=== PATIENT | female | born 1945 | race Caucasian/White ===

== ENCOUNTER 2024-10-26 11:37 | Outpatient (CLI) | payer MEDICARE, OTHER, SELFPAY ==
--- NOTE | 2024-10-26 11:44 | XR_ITS ---
WS: [email or web address] Lumbar spine, 3 views, 10/26/2024 Clinical Data: M51.36 - Other intervertebral disc degeneration, lumbar r... Comparison: Lumbar spine, 03/11/1999 Findings: No compression fractures or subluxation is seen. There is degenerative disc narrowing at L4-L5 and L5-S1. The transverse processes and SI joints are normal. There is osteoarthritis of all the lumbar vertebral bodies with bridging between the L1-L2 and L2-L3 vertebral bodies anteriorly. There are cholecystectomy clips in the right upper quadrant. XR/XR lumbar spine 2-3V* [id number] Impression: 1. Degenerative disc narrowing at L4-L5 and L5-S1. 2. Osteoarthritis of all the lumbar vertebral bodies.
--- NOTE | 2024-10-26 11:44 | XR_ITS ---
WS: [email or web address] Cervical spine, 3 views, 10/26/2024 Clinical Data: M51.36 - Other intervertebral disc degeneration, lumbar r... Comparison: Cervical spine, 03/11/2008 Findings: No compression fractures are seen. The disc heights are normal. There is no prevertebral soft tissue swelling. There our small anterior osteophytes from C4-C6. There is facet joint arthritis at C5-C6. The odontoid is unremarkable. The soft tissues of the neck and the lung apices are normal. XR/XR cervical spine 3V* [id number] Impression: 1. Osteophytes C4-C6. 2. Facet joint arthritis C5-C6
--- NOTE | 2024-10-26 11:44 | XR_ITS ---
WS: [email or web address] Thoracic spine, 3 views, 10/26/2024 Clinical Data: M51.36 - Other intervertebral disc degeneration, lumbar r... Comparison: None. Findings: No compression fractures are seen. The disc heights are normal. There is osteoarthritis of the mid and lower thoracic vertebral bodies. The paravertebral region is normal. There is a gentle dextroscoliosis. There are cholecystectomy clips in the right upper quadrant. XR/XR thoracic spine 3V* [id number] Impression: 1. Osteoarthritis of the mid and lower thoracic vertebral bodies. 2. Minimal dextroscoliosis.
== END 2024-10-26 11:38 | disposition home or self-care (01) ==
PROVIDERS: PCP Nurse Practitioner; Visit Provider Nurse Practitioner
DX: M47.894 Other spondylosis, thoracic region (principal); M41.86 Other forms of scoliosis, lumbar region; M51.361 Other intervertebral disc degeneration, lumbar region with lower extremity pain only; M51.371 Other intervertebral disc degeneration, lumbosacral region with lower extremity pain only; M47.816 Spondylosis without myelopathy or radiculopathy, lumbar region; M25.78 Osteophyte, vertebrae; M47.812 Spondylosis without myelopathy or radiculopathy, cervical region
CPT/HCPCS: 72040; 72072; 72100

== ENCOUNTER → 2024-12-03 14:46 | Outpatient (BNVA) | payer MEDICARE, OTHER, SELFPAY | PROVIDERS: PCP Nurse Practitioner; Visit Provider Nurse Practitioner | DX: E55.9 Vitamin D deficiency, unspecified (principal); M51.369 Other intervertebral disc degeneration, lumbar region without mention of lumbar back pain or lower extremity pain; Z13.6 Encounter for screening for cardiovascular disorders; K59.00 Constipation, unspecified | CPT/HCPCS: 80053; 80061; 82306; 82607; 84443; 85025 ==

== ENCOUNTER 2024-12-04 11:43 | Outpatient (CLI) | payer MEDICARE, OTHER, SELFPAY ==
--- NOTE | 2024-12-04 12:04 | XR_ITS ---
WS: [email or web address] XR thoracic spine 3V* [id number] REASON FOR EXAM: M51.36 - Other intervertebral disc degeneration, lumbar r... FINDINGS: The thoracic spine is unchanged compared to 10/26/2024. Minimal dextroscoliosis. No significant kyphosis. No significant vertebral body compression deformity or focal lesion. The disc spaces are intact and relatively well preserved. There is an anterior flowing osteophyte formation from T6-T11. XR/XR thoracic spine 3V* [id number] IMPRESSION: Stable thoracic spine with degenerative spondylosis as above.
--- NOTE | 2024-12-04 12:04 | XR_ITS ---
WS: [email or web address] XR lumbar spine 2-3V* [id number] REASON FOR EXAM: M51.36 - Other intervertebral disc degeneration, lumbar r... FINDINGS: Relatively normal lumbar spine curvatures. No significant compression deformity or focal lesion of the lumbar vertebrae. Moderate anterior bridging osteophytosis at L1-L2 2 and larger anterior bridging osteophytosis at L2-L3. Mild osteophytosis in the remainder of the lumbar spine. Moderate narrowing of the L1-L2 disc with moderate endplate sclerosis and mild to moderate osteophytosis. No spondylolysis and no significant neutral listhesis. XR/XR lumbar spine 2-3V* [id number] IMPRESSION: Degenerative spondylosis as above.
== END 2024-12-04 11:44 | disposition home or self-care (01) ==
LOC: RAD 11:48
PROVIDERS: PCP Nurse Practitioner; Visit Provider Nurse Practitioner
DX: M47.816 Spondylosis without myelopathy or radiculopathy, lumbar region (principal); M47.814 Spondylosis without myelopathy or radiculopathy, thoracic region
CPT/HCPCS: 72072; 72100

== ENCOUNTER 2024-12-24 10:12 | Outpatient (CLI) | payer MEDICARE, OTHER, SELFPAY ==
--- NOTE | 2024-12-24 11:40 | MM_ITS ---
WS: [email or web address] SCREENING DIGITAL BREAST TOMOSYNTHESIS MAMMOGRAM WITH CAD HISTORY: Z12.31 - Encounter for screening mammogram for malignant ... COMPARISON: None available. Bilateral CC and MLO with tomosynthesis and synthetic mammography submitted. Computer aided detection analyzed. Breast composition: The breasts are heterogeneously dense, which may obscure small masses. Scattered asymmetries and areas of architectural distortion and increased density within each breast. The area of distortion in the central LEFT breast may be from a prior surgery. In no prior studies are available for comparison. Multifocal areas of increased density need to be further evaluated. No suspicious grouping of calcifications. MM/MM [facility] BI tomosynthesis [id number] IMPRESSION: BI-RADS: 0 - Incomplete: Need additional imaging evaluation FOLLOW UP: Need Additional Imaging RIGHT breast: Spot compression views (CC and MLO). True ML. Ultrasound to follo w if abnormality persists. LEFT breast: Spot compression views (CC and MLO). True ML. Ultrasound to follow if abnormality persists.
== END 2024-12-24 10:13 | disposition home or self-care (01) ==
LOC: RAD 10:12
PROVIDERS: PCP Nurse Practitioner; Visit Provider Nurse Practitioner
DX: Z12.31 Encounter for screening mammogram for malignant neoplasm of breast (principal); R92.333 Mammographic heterogeneous density, bilateral breasts; N64.89 Other specified disorders of breast
CPT/HCPCS: 77063; 77067

== ENCOUNTER 2025-01-25 10:56 | Outpatient (CLI) | payer MEDICARE, OTHER, SELFPAY ==
--- NOTE | 2025-01-25 11:00 | XR_ITS ---
WS: [email or web address] XR thoracic spine 3V* [id number] REASON FOR EXAM: M51.36 - Other intervertebral disc degeneration, lumbar r... FINDINGS: The examination is unchanged compared to the previous study of 12/04/2024. No interval development of thoracic vertebral body compression deformity. There is mild dextroscoliosis and moderate degenerative spondylosis. XR/XR thoracic spine 3V* [id number] IMPRESSION: Stable thoracic spine. No acute abnormality.
--- NOTE | 2025-01-25 11:00 | XR_ITS ---
WS: [email or web address] XR cervical spine 3V* [id number] REASON FOR EXAM: M51.36 - Other intervertebral disc degeneration, lumbar r... FINDINGS: Slight straightening of the normal cervical lordosis. Slight levoscoliosis. Normal odontoid. No focal lesion or significant compression deformity of the cervical vertebrae. The intervertebral disc spaces are intact and relatively well preserved. There is mild posterior and anterior osteophytosis of the cervical vertebrae C4-C7. Normal facet joint alignment with moderate degenerative arthropathy C4-C7. XR/XR cervical spine 3V* [id number] IMPRESSION: Minimal disc disease. Moderate facet joint arthropathy.
--- NOTE | 2025-01-25 11:00 | XR_ITS ---
WS: [email or web address] XR lumbar spine 2-3V* [id number] REASON FOR EXAM: M51.36 - Other intervertebral disc degeneration, lumbar r... FINDINGS: The examination is unchanged compared to 12/04/2024. No acute or subacute compression deformities. Moderate degenerative spondylosis at L1-L2 and L5-S1. Large bridging osteophytosis at L3-L4. XR/XR lumbar spine 2-3V* [id number] IMPRESSION: Stable lumbar spine.
== END 2025-01-25 10:57 | disposition home or self-care (01) ==
LOC: RAD 10:57
PROVIDERS: PCP Nurse Practitioner; Visit Provider Nurse Practitioner
DX: M51.369 Other intervertebral disc degeneration, lumbar region without mention of lumbar back pain or lower extremity pain (principal); M47.814 Spondylosis without myelopathy or radiculopathy, thoracic region; M47.816 Spondylosis without myelopathy or radiculopathy, lumbar region; M47.817 Spondylosis without myelopathy or radiculopathy, lumbosacral region; M47.812 Spondylosis without myelopathy or radiculopathy, cervical region; M25.78 Osteophyte, vertebrae
CPT/HCPCS: 72040; 72072; 72100

== ENCOUNTER 2025-01-25 11:35 | Outpatient (CLI) | payer MEDICARE, OTHER, SELFPAY ==
--- NOTE | 2025-01-25 12:15 | MR_ITS ---
WS: [email or web address] MRI CERVICAL SPINE NONCONTRAST TECHNIQUE: Sagittal T1, T2 and STIR imaging. Axial T2, gradient, and fiesta imaging. CLINICAL INFORMATION: M51.36 - Other intervertebral disc degeneration, lumbar r... COMPARISON: None. FINDINGS: Straightening normal cervical lordosis. Cord signal is normal. C2-C3: Mild facet arthropathy. Mild bilateral foraminal narrowing. C3-C4: Shallow central protrusion. Slight contact of the cervical cord. Moderate facet arthropathy. Mild LEFT greater than RIGHT bony foraminal narrowing. C4-C5: Mild disc bulging. Advanced RIGHT facet arthropathy. Moderate RIGHT foraminal narrowing. C5-C6: Advanced LEFT facet arthropathy. No significant disc bulging. Mild to moderate LEFT foraminal narrowing. C6-C7: Mild disc bulging. Slight contact of the cervical cord. Mild LEFT greater than RIGHT foraminal narrowing. Moderate facet arthropathy. C7-T1: Mild LEFT and no significant RIGHT foraminal narrowing. Spinal canal is patent. Visualized brain stem structures: Normal. Prevertebral soft tissues: Normal. MR/MR cervical spin wo con* [id number] IMPRESSION: 1. Straightening of the normal cervical lordosis. Cord signal is normal. 2. Mild central canal stenosis C4-5 3. Moderate RIGHT C4-5 bony foraminal narrowing with advanced RIGHT facet arth ropathy. 4. Advanced LEFT C5-C6 facet arthropathy with mild to moderate LEFT foraminal narrowing. 5. Mild LEFT C6-7 and C7-T1 foraminal narrowing
--- NOTE | 2025-01-25 13:00 | MR_ITS ---
WS: [email or web address] MRI THORACIC SPINE WITHOUT CONTRAST TECHNIQUE: Sagittal T1, T2 and STIR imaging. Axial T2 imaging. Noncontrast imaging obtained. CLINICAL INFORMATION: M51.36 - Other intervertebral disc degeneration, lumbar r... COMPARISON: None. FINDINGS: Mild thoracic curve. Mild thoracic kyphosis. No acute compression fractures. Cord signal is normal. Normal CSF pulsation artifact in the dorsal spinal canal. Mild disc bulging T11-T12 with mild RIGHT greater than LEFT foraminal narrowing. Moderate facet arthropathy lower thoracic spine. Normal caliber descending thoracic aorta. Small esophageal hiatal hernia. Adrenal glands are normal. MR/MR thoracic spin wo con* [id number] IMPRESSION: 1. Mild thoracic curve. Mild thoracic kyphosis. 2. No acute compression fractures. 3. Cord signal is normal. 4. Mild disc bulging at T11-T12 with mild RIGHT greater than LEFT foraminal na rrowing. 5. Moderate facet arthropathy lower thoracic spine.
--- NOTE | 2025-01-25 13:45 | MR_ITS ---
WS: [email or web address] MRI LUMBAR SPINE NONCONTRAST TECHNIQUE: Sagittal T1, T2 and STIR imaging. Axial T1 and T2 imaging. CLINICAL INFORMATION: M51.36 - Other intervertebral disc degeneration, lumbar r... FINDINGS: Mild lumbar curve. No acute compression. L1-L2: Normal. L2-L3: Mild annular bulging. Narrowing LEFT subarticular recess. Mild facet arthropathy. Foramen are patent. L3-L4: Slight retrolisthesis. Mild annular bulging. Moderate central canal stenosis. Impingement of traversing L4 nerve roots bilaterally. Moderate facet arthropathy. Mild to moderate bilateral foraminal narrowing. L4-L5: Mild annular bulging. Moderate central canal stenosis. Impingement of the subarticular recess and traversing L5 nerve roots. Mild to moderate LEFT and mild RIGHT foraminal narrowing. Moderate facet arthropathy. L5-S1: Mild disc bulging impinges the traversing S1 nerve roots bilaterally. Moderate central canal stenosis. Advanced facet arthropathy. Moderate RIGHT and mild LEFT foraminal narrowing. Visualized pelvic bony structures: Normal. Paravertebral soft tissues: Normal. Partially visualized solid RIGHT renal lesion MR/MR lumbar spine wo con* [id number] IMPRESSION: 1. Mild lumbar curve. No acute compression. 2. Disc bulging worse at L5-S1 with grade 1 anterolisthesis. Moderate central canal stenosis with impingement of traversing S1 nerve roots bilaterally. 3. Moderate RIGHT L5-S1 foraminal narrowing with impingement on the exiting RI GHT L5 nerve root. 4. Moderate central canal stenosis L3-4 L4-5 and L5-S1 with impingement subart icular recess bilaterally. This is new since 2008. 5. Mild to moderate LEFT L3-4, LEFT L4-5, and RIGHT L5-S1 foraminal narrowing. 6. Moderate facet arthropathy L4-5 and advanced facet arthropathy L5-S1. 7. Heterogeneous solid 1.9cm RIGHT renal lesion. Recommend further evaluation with ultrasound or contrast-enhanced CT abdomen pelvis. This was present in 200 9 but no recent surveillance examinations available. This is indeterminate on sharee barron's study but thought to represent an angiomyolipoma on the prior examinatio jared.
== END 2025-01-25 11:36 | disposition home or self-care (01) ==
LOC: RAD 11:36
PROVIDERS: PCP Nurse Practitioner; Visit Provider Nurse Practitioner
DX: M51.369 Other intervertebral disc degeneration, lumbar region without mention of lumbar back pain or lower extremity pain (principal); M51.16 Intervertebral disc disorders with radiculopathy, lumbar region; M48.061 Spinal stenosis, lumbar region without neurogenic claudication; M48.07 Spinal stenosis, lumbosacral region; M47.897 Other spondylosis, lumbosacral region; M51.17 Intervertebral disc disorders with radiculopathy, lumbosacral region; M43.8X4 Other specified deforming dorsopathies, thoracic region; M51.24 Other intervertebral disc displacement, thoracic region; M47.894 Other spondylosis, thoracic region; M51.34 Other intervertebral disc degeneration, thoracic region; M48.04 Spinal stenosis, thoracic region; M48.02 Spinal stenosis, cervical region; M47.892 Other spondylosis, cervical region
CPT/HCPCS: 72141; 72146; 72148

== ENCOUNTER 2025-02-02 09:02 | Outpatient (CLI) | payer MEDICARE, OTHER, SELFPAY ==
--- NOTE | 2025-02-02 11:15 | MM_ITS ---
WS: [email or web address] ADDITIONAL VIEWS BILATERAL MAMMOGRAM WITH DIGITAL BREAST TOMOSYNTHESIS. Bilateral breast ultrasound, limited. HISTORY: Follow-up screening mammogram 12/24/2024. Additional views recommended. COMPARISON: 12/24/2024 Spot compression views bilateral breast in CC, MLO projections and true ML submitted with digital breast tomosynthesis and SM. Breast composition: The breasts are heterogeneously dense, which may obscure small masses. Distortion in the central breast in the upper outer quadrant. No mass identified. These are probably changes of a prior surgeries. Ultrasound to follow. Ultrasound is performed in the upper outer quadrant of each breast in the areas of architectural distortion. Very dense fibroglandular tissue. There is some shadowing from the breast ligaments. No mass identified. MM/MM diag BI tomosynthesis [id number] IMPRESSION: BI-RADS: 2 - Benign FOLLOW UP: 1 Year Follow-up Bilateral areas of architectural distortion are likely from the prior breast bennett rgeries. Return to annual screening mammography.
--- NOTE | 2025-02-02 11:45 | US_ITS ---
WS: [email or web address] ADDITIONAL VIEWS BILATERAL MAMMOGRAM WITH DIGITAL BREAST TOMOSYNTHESIS. Bilateral breast ultrasound, limited. HISTORY: Follow-up screening mammogram 12/24/2024. Additional views recommended. COMPARISON: 12/24/2024 Spot compression views bilateral breast in CC, MLO projections and true ML submitted with digital breast tomosynthesis and SM. Breast composition: The breasts are heterogeneously dense, which may obscure small masses. Distortion in the central breast in the upper outer quadrant. No mass identified. These are probably changes of a prior surgeries. Ultrasound to follow. Ultrasound is performed in the upper outer quadrant of each breast in the areas of architectural distortion. Very dense fibroglandular tissue. There is some shadowing from the breast ligaments. No mass identified. US/US breast BI limited* [id number] IMPRESSION: BI-RADS: 2 - Benign FOLLOW UP: 1 Year Follow-up Bilateral areas of architectural distortion are likely from the prior breast bennett rgeries. Return to annual screening mammography.
== END 2025-02-02 09:03 | disposition home or self-care (01) ==
LOC: RAD 09:03
PROVIDERS: PCP Nurse Practitioner; Visit Provider Nurse Practitioner
DX: R92.8 Other abnormal and inconclusive findings on diagnostic imaging of breast (principal); R92.333 Mammographic heterogeneous density, bilateral breasts
CPT/HCPCS: 76642; 77062; G0279

== ENCOUNTER 2025-02-16 08:21 | Outpatient (CLI) | payer MEDICARE, OTHER, SELFPAY ==
--- NOTE | 2025-02-16 09:00 | CT_ITS ---
WS: [email or web address] CT ABDOMEN AND PELVIS WITH CONTRAST HISTORY: N28.9 - Disorder of kidney and ureter, unspecified TECHNIQUE: Imaging performed of the abdomen and pelvis with IV contrast. Multi phase imaging of the abdomen. Coronal and sagittal reformats are submitted. All CT scans at [facility] use at least one of these dose optimization techniques: automated exposure control; mA and/or kV adjustment per patient size (includes targeted exams where dose is matched to clinical indication); or iterative reconstruction. IV CONTRAST: Omnipaque 350; 100 mL IV. Oral contrast: No DLP: 992.24 mGy.cm COMPARISON: 03/22/2008 Lower thorax: Linear atelectasis LEFT lung base. Heart is normal size. Small hiatal hernia. Liver/biliary system: Normal size liver with granulomata. Mild central biliary dilatation probably related to cholecystectomy. Common bile duct is normal to the ampulla. Common bile duct measures 8.2 mm. Normal portal vein. Gallbladder: Prior cholecystectomy. Pancreas: Mildly atrophic pancreas. No mass identified. Spleen: Granulomata. Normal size. Adrenal glands: Normal. Right kidney: Reidentified is a fat-containing mass in the posterior inferior RIGHT kidney measuring 2.0 x 2.1 x 2.1 cm. This mass is unchanged since 2008 and most consistent with an angiomyolipoma. There is a new low-attenuation mass measuring 0.8 cm in the anterior lower pole which is probably a cyst. This mass does not enhance. No renal obstruction. Left kidney: Normal. Aorta: Mild atherosclerosis with no aneurysm. Lymphadenopathy: None. Free fluid: None. GI tract: Normally distended stomach. No small bowel obstruction. Moderate diffuse constipation. No evidence for appendicitis. No colitis. Very few sigmoid diverticula without acute diverticulitis. Abdominal wall: Unremarkable abdominal wall. No hernia. Pelvis: No free fluid or adenopathy within the pelvis. Prior hysterectomy. Urinary bladder is negative. Bones: Moderate degenerative changes in the lumbar spine. L5 anterolisthesis by 5 mm. Degenerative disc disease and component of central foraminal stenosis at L4-5 and L5-S1. CT/CT abdomen pelvis w con* [id number] IMPRESSION: 1. 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 2. New cyst RIGHT kidney, 0.8 cm. No solid mass. 3. Diffuse moderate constipation. 4. Mild diverticular disease in the sigmoid colon with no acute diverticulitis . 5. Prior cholecystectomy. 6. Intrahepatic biliary duct dilatation is new since 2008. This may be related to the cholecystectomy. Correlate with liver function studies. If liver functi on studies are abnormal MRCP may be beneficial to evaluate the distal common bi le duct. No stones are identified.
[2025-02-16] MEDS: iohexol 350 mg/mL 500 mL Btl (per mL) IV (09:03)
[2025-02-16 10:02] LABS: Blood Urea Nitrogen 12 mg/dL (8-23)
== END 2025-02-16 08:22 | disposition home or self-care (01) ==
LOC: RAD 08:23
PROVIDERS: PCP Nurse Practitioner; Visit Provider Nurse Practitioner
DX: N28.9 Disorder of kidney and ureter, unspecified (principal); D17.71 Benign lipomatous neoplasm of kidney; N28.1 Cyst of kidney, acquired; K59.00 Constipation, unspecified; Z90.49 Acquired absence of other specified parts of digestive tract; M51.362 Other intervertebral disc degeneration, lumbar region with discogenic back pain and lower extremity pain; M47.896 Other spondylosis, lumbar region
CPT/HCPCS: 72110; 74177; 82565; 84520; 99203